=== PATIENT | male | born 1975 | race Two or more races ===

== ENCOUNTER 2017-04-09 16:05 | Emergency (ER) | payer OTHER ==
--- NOTE | ~2017-04-09 | CT4 ---
[facility] A Service [facility] RADIOLOGY TEXT RESULTS PATIENT: ADRIANNE MASSEY LOCATION: SED : 73 UNIT #: [id number] AGE: [address]: ARVIND TELLES SEX: M ORDER DR: [id number] [place] [id number] E MR#: [id number] Acc #: [id number] NAME: ADRIANNE MASSEY : 1975 SEX: M STUDY DATE/TIME: 04/09/2017 18:53 UNIT: SED ROOM: STUDY DESCRIPTION: CT Abd and Pelv Wo Cont Attending Physician: Arvind Telles R.N. Ordering Physician: Staff Doctor Not On MEDICAL IMAGING REPORT This report is preliminary unless electronic signature is present. EXAM Abdomen and pelvis CT without contrast. HISTORY Left-sided pain after lifting a marble slab 2 weeks ago. TECHNIQUE Axial images were obtained without contrast. This CT exam was performed with one or more of the following radiation dose reduction techniques: automatic exposure control, adjustment of mA and/or kV according to patient size, and iterative reconstruction. FINDINGS The liver, spleen and pancreas are normal in size. The right kidney is unremarkable. There is atrophy of the left kidney and dysplasia noted. There is no evidence of retroperitoneal adenopathy or ascites and no distended bowel loops are seen. The appendix is normal. Scans into the pelvis show no evidence of pelvic adenopathy, mass or fluid collection. 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 No acute or inflammatory changes seen in the abdomen or pelvis. Dictated by... Fer Peraza M.D. THIS IS AN ELECTRONICALLY VERIFIED REPORT Fer Peraza M.D. at 04/12/2017 7:13 AM [facility] A Service [facility] RADIOLOGY TEXT RESULTS PATIENT: ADRIANNE MASSEY LOCATION: SED : 73 UNIT #: [id number] AGE: [address]: ARVIND TELLES SEX: M ORDER DR: Blessing TD: 04/10/2017 22:32 JOB #: [id number] MEDICAL IMAGING REPORT Page 1 of 1
[2017-04-09] MEDS ORDERED: NEURONTIN PO (16:31)
[2017-04-09] MEDS ORDERED: MUSCLE RELAXANT PO (16:32)
[2017-04-09 18:04] LABS: URINE SOURCE CLEAN CATCH
[2017-04-09 18:06] LABS: URINE APPEARANCE CLEAR; URINE BILIRUBIN NEG (NEG); URINE BLOOD TRACE-LYSED (NEG); URINE COLOR YELLOW; URINE GLUCOSE NEG (NORM); URINE KETONE NEG (NEG); URINE LEUKOCYTE ESTERASE NEG (NEG); URINE NITRATE NEG (NEG); URINE PROTEIN NEG (NEG); URINE UROBILINOGEN 0.2 MG/DL (NORM)
[2017-04-09 18:17] LABS: MICRO INDICATED? YES
[2017-04-09 18:19] LABS: CULTURE INDICATED? NO; URINE BACTERIA NEG (NEG); URINE RBC 0-2 /[HPF] (0-2); URINE WBC 0-2 /[HPF] (0-5)
[2017-05-10] MEDS ORDERED: FLEXERIL10 MG PO (07:59)
[2017-05-10] MEDS ORDERED: LODINE500 M1 PO (07:59)
[2017-05-10] MEDS ORDERED: LYRICA100 MG PO (08:00)
== END 2017-04-09 20:10 | disposition home or self-care (01) ==
LOC: SED 16:05
PROVIDERS: Nurse Practitioner
DX: S39.012A Strain of muscle, fascia and tendon of lower back, initial encounter (principal); M54.42 Lumbago with sciatica, left side; F17.210 Nicotine dependence, cigarettes, uncomplicated; Z79.899 Other long term (current) drug therapy; X50.9XXA Other and unspecified overexertion or strenuous movements or postures, initial encounter; Y93.89 Activity, other specified; Y92.69 Other specified industrial and construction area as the place of occurrence of the external cause; Y99.0 Civilian activity done for income or pay
CPT/HCPCS: 74176; 81003; 96372; 99284; J1885